=== PATIENT | male | born 1945 | race Caucasian/White ===

== ENCOUNTER 2022-05-21 15:04 | Emergency (ER) | payer MEDICARE, BC ==
[2022-05-21 16:34] VITALS: BP 138/83; PULSE 68
[2022-05-21] MEDS ORDERED: Metoclopramide 10 MG/2 ML SDV IVPUSH ONE (16:57)
[2022-05-21] MEDS ORDERED: HYDROmorphone 0.5 MG/0.5 ML Syringe IVPUSH ONE (16:57)
[2022-05-21] MEDS ORDERED: Dextrose 5%-0.9% NaCl 1,000 ML IV SCH (17:00)
[2022-05-21 17:54] LABS: ESTIMATED GFR 78 mL/min (>60)
== END 2022-05-21 20:10 | disposition home or self-care (01) ==
LOC: JD.ED 15:04
DX: K59.01 Slow transit constipation (principal); I10 Essential (primary) hypertension; E03.9 Hypothyroidism, unspecified; Z88.0 Allergy status to penicillin; Z88.1 Allergy status to other antibiotic agents; Z88.8 Allergy status to other drugs, medicaments and biological substances; Z79.899 Other long term (current) drug therapy
CPT/HCPCS: 36415; 74177; 80053; 81001; 83690; 83735; 85025; 86140; 96365; 96366; 96375; 99284; J1170; J2765; J7042